=== PATIENT | female | born 1970 | race Caucasian/White ===

== ENCOUNTER 2020-07-19 12:50 | Outpatient (CLI) | payer OTHER | END 2020-07-19 12:51 | disposition home or self-care (01) | LOC: CSHMAMMO 12:50 | PROVIDERS: ATTEND Obstetrics & Gynecology | DX: N63.20 Unspecified lump in the left breast, unspecified quadrant (principal) | CPT/HCPCS: 77066; G0279 ==

== ENCOUNTER 2021-11-15 09:11 | Outpatient (CLI) | payer OTHER | END 2021-11-15 09:12 | disposition home or self-care (01) | LOC: CSHMAMMO 09:11 | PROVIDERS: ATTEND Obstetrics & Gynecology | DX: Z12.31 Encounter for screening mammogram for malignant neoplasm of breast (principal) | CPT/HCPCS: 77063; 77067 ==